=== PATIENT | male | born 1930 | race Caucasian/White ===

== ENCOUNTER 2017-06-27 06:48 | Day surgery (SDC) | payer OTHER, BC ==
[2017-06-06 14:03] VITALS: BMI 36.0
--- NOTE | 2017-06-06 14:37 | PAT Medication Instructions ---
Service Date Jun 06, 2017. Current Home Medication List Acetaminophen/Diphenhydramine (Tylenol Pm), 2 TAB PO HS Amlodipine (Norvasc), 5 MG PO QAM Carvedilol (Coreg), 6.25 MG PO am/hs Febuxostat (Uloric), 1 TAB PO QAM Fish Oil ([place]-3), 1 CAP PO QAM Latanoprost (Xalatan 0.005% Oph [place]), 1 DROP OPB HS Loperamide Hcl (Imodium), 4 MG PO BID Metformin Hcl (Glucophage), 1,000 MG PO QAM Multiple Vitamins W/ Minerals (Centrum), 1 TABLET PO QAM Multiple Vitamins W/ Minerals (Ocuvite), 1 TAB PO QAM Simvastatin (Zocor), 20 MG PO HS Torsemide (Demadex), 1 TAB PO QAM [Iron], 1 TAB PO QAM [Lidocaine Oint], 1 DOSE TOP PRN [Lisinopril], 1 TAB PO QAM Medication Instructions For Your Scheduled Surgery - Hold the following medications 2 weeks prior to surgery: Fish Oil ([place]-3), 1 CAP PO QAM - Hold the following medications 24 hours prior to surgery: [Lidocaine Oint], 1 DOSE TOP PRN - Hold the following medications 48 hours prior to surgery: Metformin Hcl (Glucophage), 1,000 MG PO QAM - Hold the following medications the morning of surgery: [Lisinopril], 1 TAB PO QAM [Iron], 1 TAB PO QAM Torsemide (Demadex), 1 TAB PO QAM Loperamide Hcl (Imodium), 4 MG PO BID Multiple Vitamins W/ Minerals (Centrum), 1 TABLET PO QAM Multiple Vitamins W/ Minerals (Ocuvite), 1 TAB PO QAM - Take the following medications the morning of surgery with a sip of water: Febuxostat (Uloric), 1 TAB PO QAM Carvedilol (Coreg), 6.25 MG PO am/hs Amlodipine (Norvasc), 5 MG PO QAM - Take the following medications as scheduled the night before surgery: Loperamide Hcl (Imodium), 4 MG PO BID Simvastatin (Zocor), 20 MG PO HS Latanoprost (Xalatan 0.005% Oph [place]), 1 DROP OPB HS Carvedilol (Coreg), 6.25 MG PO am/hs Acetaminophen/Diphenhydramine (Tylenol Pm), 2 TAB PO HS If you have any questions please call us at [phone] or [phone] or [phone]
[2017-06-06 14:51] LABS: BASO % 0.6 %; BASO ABS # 0.04 K/uL (0-0.2); COMPLETE YES; EOS % 3.5 %; HEMATOCRIT 34.4 % (42-52); IG% 0.2 %; LYMPH % 19.1 %; LYMPH ABS # 1.27 K/uL (1.2-3.4); MEAN CELL VOLUME 95.3 fL (80-100); MEAN CORPUSCULAR HEMOGLOBIN 31.3 pg (25-34); MEAN CORPUSCULAR HGB CONC 32.8 g/dl (32-36); MEAN PLATELET VOLUME 9.6 fL (7.4-10.4); NEUT % 67.6 %; PLATELET COUNT 178 K/uL (130-400); RED BLOOD COUNT 3.61 M/uL (4.7-6.1); WHITE BLOOD COUNT 6.66 K/uL (4.8-10.8)
[2017-06-06 15:00] LABS: BUN/CREATININE RATIO 16.3 (10-20); CALCIUM 9.1 mg/dl (8.5-10.1); CREATININE 1.39 mg/dl (0.60-1.40); POTASSIUM 4.3 mmol/L (3.5-5.1)
[2017-06-06 15:33] LABS: URINE APPEARANCE CLOUDY (CLEAR); URINE BILIRUBIN NEG (NEG); URINE COLOR RED; URINE NITRITE NEG (NEG); URINE PH 6.5 (4.5-7.5); URINE SPECIFIC GRAVITY 1.019 (1.000-1.030); UROBILINOGEN NEG (NEG)
[2017-06-06 15:40] LABS: MANUAL MICROSCOPIC REQUIRED? NO; REVIEW REQ? YES
--- NOTE | 2017-06-06 15:41 | DIAGNOSTIC IMAGING REPORT ---
CHEST PREADMISSION(PA/LAT) HISTORY: 87 years-old Male PAT preoperative exam. COMPARISON: Chest radiograph 06/13/2015 TECHNIQUE: PA and lateral views of the chest FINDINGS: Cardiac silhouette is moderately enlarged, unchanged. There is atherosclerosis of the aorta. Pulmonary vascular congestion with chronic interstitial thickening redemonstrated. Costophrenic granuloma the left upper lobe. There is no pneumothorax, pleural effusion or focal airspace consolidation. Degenerative changes of the shoulders and spine. IMPRESSION: Cardiomegaly with pulmonary vascular congestion and chronic interstitial coarsening. No overt pulmonary edema. The above report was generated using voice recognition software. It may contain grammatical, syntax or spelling errors. Electronically signed by: Ede Huff M.D. 06/06/2017 3:40 PM Dictated Date/Time: 06/06/2017 3:39 PM
[~2017-06-27] VITALS: Ht 167.6 cm; Wt 100.9 kg
[~2017-06-27 06:48] MED LIST: AMLO-110 PO; CARV6.252 PO; CIPROFLOXACIN / D5W 400 MG IV SCH; CIPROFLOXACIN 400MG / D5W IV SCH; DIPH-437 PO; FEBU80TA PO; GLC/500 PO; IMD/2 PO; IRON PO; LACTATED RINGER'S 1000ML 1,000 ML IV SCH; LATA0.5S OPB; LIDOCAINE OINT TOP; LISIPOW PO; MULT-188 PO; MULTTAB5 PO; OMEG10007 PO; SIMV20TA5 PO; TORS20TA2 PO
[2017-06-27 07:26] VITALS: BP 189/71; PULSE 63; TEMP 36.6; O2SAT 98; Ht 167.6 cm; Wt 100.9 kg
[2017-06-27] MEDS ORDERED: PROPOFOL IV EMULSION 10 MG/ML 20 ML VIAL IV ONE (08:04)
[2017-06-27] MEDS ORDERED: FENTANYL CITRATE INJ 50 MCG/1 ML 2 ML VIAL ONE ×2 (08:04→09:44)
[2017-06-27] MEDS ORDERED: MIDAZOLAM HCL 1 MG/ML 2ML VIAL ONE (08:04)
[2017-06-27] MEDS ORDERED: ONDANSETRON INJ 2 MG/ML 2 ML VIAL ONE (08:04)
--- NOTE | 2017-06-27 08:04 | History & Physical Bridge Note ---
H&P Re-Evaluation Bridge Note: I have examined the patient, reviewed the History & Physical and in the interval since the performance of the History & Physical I have noted the following changes of clinical significance: No changes noted
[2017-06-27] MEDS ORDERED: LIDOCAINE HCL 2% 2 ML VIAL (20MG/ML) ONE (08:06)
[2017-06-27] MEDS ORDERED: PHENYLEPHRINE 100MCG/ML 5ML SYR ONE (08:36)
[2017-06-27] MEDS ORDERED: EpHEDrine SULFATE 50MG/5ML SYR ONE (08:37)
[2017-06-27] MEDS ORDERED: METHYLENE BLUE 0.5% 10 ML VIAL ONE (08:54)
[2017-06-27] MEDS ORDERED: ATROPINE SULFATE 0.1 MG/ML 5ML SYR IV PRN (09:00)
[2017-06-27] MEDS ORDERED: FENTANYL CITRATE INJ 50 MCG/1 ML 2 ML VIAL IV PRN (09:00)
[2017-06-27] MEDS ORDERED: EpHEDrine SULFATE INJ 50 MG/ML AMP IV PRN (09:00)
[2017-06-27] MEDS ORDERED: CONRAY 30% 150ML BOTTLE ONE (09:06)
--- NOTE | 2017-06-27 09:29 | DIAGNOSTIC IMAGING REPORT ---
RETROGRADE INCLUDES KUB HISTORY: 87 years-old Male STENT PLACEMENT status post placement of a right ureteral stent COMPARISON: CT abdomen and pelvis 07/25/2011 TECHNIQUE: Single spot fluoroscopic image of the right upper abdomen was obtained utilizing 35.7 seconds fluoroscopy time FINDINGS: Single image demonstrates the proximal portion of a stent within the region of the renal pelvis. Collecting system on the right is partially opacified and may be mildly dilated. No focal collecting system filling defect, or definite urolith identified. The distal portion of the stent was not imaged. Multilevel degenerative spurring of the spine incidentally noted. IMPRESSION: Status post placement of a right ureteral stent. Please see procedural report for further details. The above report was generated using voice recognition software. It may contain grammatical, syntax or spelling errors. Electronically signed by: Ede Huff M.D. 06/27/2017 9:27 AM Dictated Date/Time: 06/27/2017 9:26 AM
[2017-06-27] MEDS ORDERED: OXYC-57 PO (09:33)
--- NOTE | 2017-06-27 09:34 | Discharge Instructions ---
Discharge Instructions Date of Service Jun 27, 2017. Visit Reason for Visit: Bladder Neoplasm Discharge Discharge Diagnosis / Problem: radiation cystitis Discharge Goals Goal(s): Therapeutic intervention Activity Recommendations Activity Limitations: resume your previous activity (take it easy today) Exercise/Sports Limitations: rest today May Resume Sexual Activity: after one week Shower/Bathe: no limitations Driving or Machine Use: resume 1 day after discharge Anesthesia . Post Anesthesia Instructions: If you have had General Anesthesia or IV Sedation: * Do not drive today. * Resume driving when surgeon permits. * Do not make important decisions or sign legal documents today. * Call surgeon for: 1. Temperature elevations greater than 101 degrees F. 2. Uncontrollable pain. 3. Excessive bleeding. 4. Persistent nausea and vomiting. 5. Medication intolerance (nausea, vomiting or rash). * For nausea and vomiting use only clear liquids such as: tea, soda, bouillon until nausea subsides, then gradually increase diet as tolerated. * If you have any concerns or questions, call your surgeon's office. If physician is unavailable and it is an emergency, call 911 or go to the nearest emergency room. . Diet Recommendations Recommended Home Diet: resume previous diet Procedures Procedures Performed: Clot Evacuation, Fulgeration of bladder, Right Retrograde Pyelogram, Right Ureteral Stent Placement Pending Studies Studies pending at discharge: no Medical Emergencies . Who to Call and When: Medical Emergencies: If at any time you feel your situation is an emergency, please call 911 immediately. . Non-Emergent Contact Non-Emergency issues call your: Urologist Call Non-Emergent contact if: temperature is above 101.5, your pain is not controlled . . "Provider Documentation" section prepared by Carlos Enrique Franklin. . [place] Drug Monitoring Program Search Results: patient reviewed within database
[2017-06-27] MEDS ORDERED: OXYCODONE/ACETAMINOPHEN 5-325 TAB PO PRN (09:45)
--- NOTE | 2017-06-27 09:53 | [facility] Operative Report ---
Operative Report Operative Date Jun 27, 2017. Pre-Operative Diagnosis Gross hematuria Post-Operative Diagnosis Gross hematuria Procedure(s) Performed Clot Evacuation, Fulgeration of bladder, Right Retrograde Pyelogram, Right Ureteral Stent Placement Surgeon Dr. Carlos Enrique Franklin Certified Dietary Manager Surgeon(s) None Estimated Blood Loss 2 mL Findings Cystoscopic exam revealed a normal anterior urethra prostatic fossa is fixed and open secondary to his prostate cancer is really no sphincter remaining bladder showed some clots there was a lot of oozing from multiple spots in the bladder primarily around the right ureteral orifice. Right retrograde showed no hydronephrosis or filling defects Specimens No pathology specimens per surgeon Drains 6 [place] by 24 cm right ureteral stent and 18 [place] Lester catheter Anesthesia general Complication(s) None Disposition Recovery Room / PACU Indications 87-year-old white male with a history of bladder cancer and radiation cystitis as had problems with intermittent gross hematuria about a year ago had a fulguration which caused the hematuria to subside and fortunately he's had a recurrence of the hematuria is growing brought in now for cystoscopy and fulguration possible bladder tumor resection if there are any Description of Procedure After the induction of an adequate general anesthetic and appropriate timeout patient was placed in the dorsal lithotomy position. Lower abdomen and genitalia were prepped with Hibiclens draped in sterile fashion using a 22 [place] cystoscope routine cystoscopic exam was performed the above-noted findings. Using an [employer] evacuator clot was evacuated from the bladder. Next a 24 [place] resectoscope and cautery loop work inserted all the bleeding points in the prosthetic fossa and scattered around the bladder were fulgurated is a lot of bleeding around the right ureteral orifice this was fulgurated and a retrograde was done to make sure there was nothing in the ureter which was negative. Since I did do a fair amount of fulguration around the right ureteral orifice I was concerned about it swelling causing him colic so a 6 [place] by 24 cm right ureteral stent was passed under fluoroscopic guidance to position the renal pelvis guidewire was removed is good curl at the bladder level after full radiology bleeding points sure nothing else of bleeding and evacuating any remaining clot patient's bladder was filled resectoscope was removed and a 618 [place] Lester catheter inserted per urethra into the bladder and this was then attached to gravity drainage. All needle sponges counts are correct at the end of the case. Patient tolerated the procedure well to recovery room in stable condition I attest to the content of the Intraoperative Record and any orders documented therein. Any exceptions are noted below.
--- NOTE | 2017-06-27 10:28 | Anesthesiology Progress Note ---
Anesthesia Post Op Note Date & Time Jun 27, 2017 at 10:28 Vital Signs Pain Intensity: 2 Vital Signs Past 12 Hours Date Time Temp Pulse Resp B/P (MAP) Pulse Ox O2 Delivery O2 Flow Rate FiO2 06/27/17 10:18 171/64 06/27/17 10:17 76 23 99 06/27/17 10:17 76 23 06/27/17 10:16 181/69 06/27/17 10:12 75 10 100 06/27/17 10:12 75 10 06/27/17 10:11 164/56 06/27/17 10:07 74 12 06/27/17 10:07 74 12 99 06/27/17 10:06 173/65 06/27/17 10:03 36.0 80 20 171/64 (88) 100 Room Air 06/27/17 10:02 75 10 06/27/17 10:02 75 10 100 06/27/17 10:01 180/74 06/27/17 09:57 79 17 100 06/27/17 09:57 79 17 06/27/17 09:56 156/61 06/27/17 09:53 75 20 100 06/27/17 09:53 75 20 06/27/17 09:51 160/60 06/27/17 09:48 78 20 06/27/17 09:48 78 20 100 06/27/17 09:46 190/83 06/27/17 09:43 88 19 06/27/17 09:43 88 19 100 06/27/17 09:41 182/93 06/27/17 09:39 188/104 06/27/17 09:38 92 17 100 06/27/17 09:38 92 17 06/27/17 09:37 189/155 06/27/17 09:36 196/96 06/27/17 09:33 89 24 06/27/17 09:33 36.0 94 20 196/96 (104) 100 Oxymask 10 06/27/17 09:33 89 24 159/102 100 06/27/17 07:26 36.6 63 18 189/71 (110) 98 Room Air Notes Mental Status: alert / awake / arousable, participated in evaluation Pt Amnestic to Procedure: Yes Nausea / Vomiting: adequately controlled Pain: adequately controlled Airway Patency, RR, SpO2: stable & adequate BP & HR: stable & adequate Hydration State: stable & adequate Anesthetic Complications: no major complications apparent
[2017-06-27 10:30] VITALS: BP 170/71; PULSE 74; TEMP 36.6; O2SAT 99
[2017-06-27 11:00] VITALS: BP 161/67; PULSE 73; O2SAT 96
[2017-06-27] MEDS ORDERED: OXYCODONE/ACETAMINOPHEN 5-325 TAB ONE (11:11)
[2017-06-27 11:30] VITALS: BP 198/92; PULSE 76; TEMP 36.3; O2SAT 99
[2017-06-27 12:04] VITALS: BP 192/88
[2017-06-27] MEDS ORDERED: HydrALAZINE HCL 20 MG/ML VIAL ONE (12:10)
[2017-06-27] MEDS ORDERED: NURSING VERBAL MED ORDER ONE (12:15)
[2017-06-27 12:30] VITALS: BP 133/77; PULSE 70; TEMP 36.3; O2SAT 100
== END 2017-06-27 12:36 | disposition home or self-care (01) ==
LOC: C.ACU 06:48
PROVIDERS: ATTEND Urology
DX: R31.0 Gross hematuria (principal); N30.40 Irradiation cystitis without hematuria; C61 Malignant neoplasm of prostate; Z87.891 Personal history of nicotine dependence; Z79.899 Other long term (current) drug therapy